=== PATIENT | male | born 1995 | race Caucasian/White ===

== ENCOUNTER → 2017-01-16 | Day surgery (SDC) | payer OTHER ==
--- NOTE | ~2017-01-16 | HP ---
ADMIT: 01/16/2017 RM/LOC: [facility] MR#: [id number] [address] [facility] [address] [place], [place] [address] KELSEA CHIN [address] [place] [address] Pre-OP History and Physical SEX: M AGE: 21 : 1995 DATE OF SERVICE: HISTORY OF PRESENT ILLNESS: This patient is a 21-year-old male, who was eating steak, said he took a bite, did not chew well enough, got stuck in his esophagus. Unable to get it up or out, unable to puke it out. He has tried drinking some water, would not go down. He is sitting there, spitting his saliva into a bag. He was transferred over from [place], where he was seen initially. Says he has never had this before. He has not been having any problems with significant GERD or reflux, takes some medications. PAST MEDICAL HISTORY: Significant for obesity. He has had knee meniscus and a toe surgery. He denies otherwise any other medical problems or issues. He denies any routine medications. He does chew some tobacco minimally. Denies any significant EtOH. FAMILY HISTORY: Noncontributory. PHYSICAL EXAMINATION: GENERAL: He is alert. He is oriented. He is in no significant distress. HEENT: His sclerae are nonicteric. Extraocular muscles are intact. CHEST: Clear. HEART: Regular rate and rhythm. ABDOMEN: Obese, no pain to palpation. No masses. EXTREMITIES: Without clubbing or cyanosis. ASSESSMENT AND PLAN: EGD and food bolus removal. Jake Yang MD/ birdie JOB #: [id number] CC: Jake Yang, Attending Physician Otilia Cabrera, Family Physician
--- NOTE | 2017-01-17 19:09 | ER ---
ADMIT: 01/16/2017 RM/LOC: [facility] MR#: [id number] [address] [place], [place] [address] KELSEA CHIN [address] [place] [address] Emergency Room Report SEX: M AGE: 21 : 1995 DATE: 01/16/2017 BRIEF ADDENDUM: Please see my T-sheet for complete review of systems, past medical history, and physical exam. CHIEF COMPLAINT: Food bolus. HISTORY OF PRESENT ILLNESS: This is a pleasant 21-year-old white male, who presents to the [place] ED after being seen at the [facility]. States he was eating steak about 2 hours prior to arrival when it was lodged in his esophagus. He is having difficulty tolerating his secretions at this time and continually spits in a bag. Denies any pain, just a discomfort in his chest. He was seen at the [facility], who spoke with Dr. Yang, who had him transferred to [facility] for urgent endoscopy. Denies any fevers, chills, sore throat, cough, ear ache. Otherwise, well. PAST MEDICAL HISTORY: No past medical history. MEDICATIONS: Takes no medications. ALLERGIES: HAS NO ALLERGIES. SOCIAL HISTORY: He does use chewing tobacco and drinks occasionally. COURSE IN THE EMERGENCY ROOM: GENERAL: Patient was seen and examined. He is afebrile. No acute distress. He is alert. HEAD AND NECK: Normal inspection. Trachea is midline. No lymphadenopathy. Eyes, equal and reactive. Pharynx is nonerythematous. No airway problems. He does have increased secretion of saliva. CHEST: No tenderness to palpation of chest, just a vague feeling of pressure and discomfort. Breath sounds are normal bilaterally. No wheezes, rhonchi, ADMIT: 01/16/2017 RM/LOC: [facility] MR#: [id number] [address] [address] KELSEA CHIN [address] [place] [address] Emergency Room Report SEX: M AGE: 21 : 1995 or rales. HEART: Regular. No murmur. ABDOMEN: Nontender. SKIN: No rash. IMPRESSION: 1. Foreign body food bolus in the esophagus. 2. Obesity. DISPOSITION: Did see Dr. Yang in the department tonight, who is taking him back to the surgical suite for urgent endoscopy to remove the food bolus. He will be recovered in the ED and discharged home to follow up with his primary care provider as needed. JT Reardon / Ricardo Zuñiga MD / birdie JOB #: [id number] CC: Jake Yang MD, Attending Physician Otilia Cabrera MD, Family Physician
--- NOTE | 2017-02-07 15:54 | OR ---
ADMIT: 01/16/2017 RM/LOC: [facility] MR#: [id number] [address] [place], [place] [address] KELSEA CHIN [address] [place] [address] Operative/Delivery Room Report SEX: M AGE: 21 : 1995 SURGERY DATE: 01/16/2017 SURGEON: Jake Yang MD PREOPERATIVE DIAGNOSIS: Food bolus in the esophagus. POSTOPERATIVE DIAGNOSIS: Meat in the distal esophagus as you can see in picture 1. PROCEDURE: EGD and removal of food bolus. ANESTHESIA: MAC anesthesia. ESTIMATED BLOOD LOSS: None. INDICATION FOR PROCEDURE: Please see H and P. DESCRIPTION OF PROCEDURE: After the risks, benefits, possible complications, and the alternatives had been explained, and informed consent had been obtained, the patient was taken back to the procedure room, underwent sedation. Flexible EGD scope was introduced, and you see the meat down in the distal esophagus. He is unable to pass, maneuvered slowly to the side of it and was able to get it going down into the stomach and pushed in without any significant force or issues. Maneuvered the scope down through the stomach and the second portion of the duodenum, which appeared okay. Duodenum and duodenal bulb appeared okay. You can see some food debris still in the stomach in picture #4. Came back up, there was like I said some mild irritation there where the food was stuck, but the rest of the esophagus was clear as I inspected it on the way out, and the procedure was terminated. Tolerated it well, was taken to recovery room in stable and satisfactory condition. Jake Yang MD/ birdie JOB #: [id number] CC: Jake Yang, Attending Physician Otilia Cabrera, Family Physician
== END | disposition home or self-care (01) ==
LOC: ER 21:14 → SSS 22:10
PROC: 0DC68ZZ Extirpation of Matter from Stomach, Via Natural or Artificial Opening Endoscopic (ICD-10-PCS; principal; 2017-01-16)
DX: T18.128A Food in esophagus causing other injury, initial encounter (principal); E66.9 Obesity, unspecified; Z79.899 Other long term (current) drug therapy; X58.XXXA Exposure to other specified factors, initial encounter; Y93.89 Activity, other specified

== ENCOUNTER 2017-01-25 09:18 | Day surgery (SDC) | payer OTHER ==
[~2017-01-25] VITALS: Ht 195.6 cm; Wt 154.5 kg
--- NOTE | ~2017-01-25 | OR ---
ADMIT: 01/25/2017 RM/LOC: [facility] MR#: [id number] [facility]#: [id number] [address] [address] KELSEA CHIN [address] [place] [address] Operative/Delivery Room Report SEX: M AGE: 21 : 1995 SURGERY DATE: 01/25/2017 SURGEON: Angel Salinas MD PREOPERATIVE DIAGNOSIS: Esophageal food bolus. POSTOPERATIVE DIAGNOSIS: Esophageal food bolus. PROCEDURE PERFORMED: EGD with removal of esophageal food bolus as well as biopsies of the distal esophagus. ANESTHESIA: Sedation. ESTIMATED BLOOD LOSS: None. DESCRIPTION OF PROCEDURE: After appropriate informed consent was obtained, the patient was brought to the endoscopy suite. IV sedation was provided. A well-lubricated endoscope was introduced and passed down the esophagus. The proximal and mid esophagus appeared normal. Distal esophagus though did show clearly a piece of meat stuck in the distal esophagus. I was able to remove a portion of this with a Corbin net, but not the entirety of it. The scope was then reintroduced, passed back down into the esophagus and was able to push the remaining meat through the GE junction into the stomach. The esophagus appeared normal. There was no evidence of stricture or narrowing. No hiatal hernia. The gastric mucosa appeared normal throughout. The pylorus was intubated. Duodenal bulb, second and third portions of the duodenum appeared normal. The scope was retroflexed revealing no hiatal hernia from below. No proximal gastritis or mass. Several biopsies were then taken of the distal esophagus to rule out eosinophilic esophagitis. With the biopsies taken, the stomach was then deflated and scope was withdrawn without apparent complications. The patient tolerated the procedure well and was taken to the recovery room in stable condition. Angel Salinas MD/ birdie JOB #: [id number] CC: Angel Salinas, Attending Physician Angel Salinas, Family Physician Deandre Edouard MD
--- NOTE | ~2017-01-25 | HP ---
ADMIT: 01/25/2017 RM/LOC: [facility] MR#: [id number] [id number] [place], [place] [address] [facility] [address] [place] [address] History and Physical SEX: M AGE: 21 : 1995 DATE OF SERVICE: 01/25/2017 ADDENDUM: This is an addendum to an H and P by JT Buckner. This patient has an esophageal food bolus. He was just in the hospital about a week or a week and a half ago with a similar problem. Dr. Yang had removed food bolus. He was eating a piece of roast beef, and it got stuck. He cannot even tolerate his own secretions, so we elected to proceed back to the OR for upper endoscopy and removal of this food bolus. He understands the risks and benefits of this procedure, and I have also talked to the patient's mother about this. Angel Salinas MD/ birdie JOB #: [id number] CC: Angel Salinas, Attending Physician Angel Salinas, Family Physician
--- NOTE | 2017-01-31 10:36 | HP ---
ADMIT: 01/25/2017 RM/LOC: [facility] MR#: [id number] [address] [place], [place] [address] KELSEA CHIN [address] [place] [address] History and Physical SEX: M AGE: 21 : 1995 DATE OF SERVICE: 01/25/2017 CHIEF COMPLAINT: Food stuck in throat. HISTORY OF PRESENT ILLNESS: Kelsea is a very pleasant 21-year-old male, who was eating either steak or pork last night for supper and noticed a piece get stuck in his throat. He tried to wash it down with water, but was unsuccessful and has been spitting the water back up. He actually had this issue not too long ago, approximately one week ago where he underwent EGD with foreign body removal by Dr. Yang. At that time, he is able to pass the food bolus through. He currently denies any pain, but just states the discomfort. He further denies any nausea, diarrhea, constipation, dark or bloody stools. PAST MEDICAL HISTORY: No significant history. PAST SURGICAL HISTORY: 1. Previous EGD approximately 1 week ago, please see HPI. 2. Bilateral knee scopes. 3. Left foot surgery. ALLERGIES: NO KNOWN DRUG ALLERGIES. MEDICATIONS: No home medications. FAMILY HISTORY: Noncontributory. SOCIAL HISTORY: The patient chews tobacco and it can last him about 2 to 3 days. He has an occasional beer every now and then too. Denies any illicit drug use. REVIEW OF SYSTEMS: CONSTITUTIONAL: The patient denies any fever, chills, or night sweats. The rest of comprehensive 10-point review of systems was performed and all other systems are negative. PHYSICAL EXAMINATION: GENERAL: The patient is in no acute distress. He is alert oriented. HEENT: Head is normocephalic and atraumatic. EOMs are intact. Conjunctivae free of icterus, erythema, or pallor. Pinnae, free of deformities. Nose, midline. No tracheal deviation. NECK: Supple. SKIN: Negative for jaundice, clubbing, edema, pallor, or cyanosis. LUNGS: Normal respiratory effort. ADMIT: 01/25/2017 RM/LOC: [facility] MR#: [id number] [address] [place], [place] [address] [facility] [address] [place] [address] History and Physical SEX: M AGE: 21 : 1995 HEART: Distal pulses intact. Regular rate and rhythm. ABDOMEN: Soft, nondistended, and nontender. NEURO: Grossly intact. ASSESSMENT: Food bolus. PLAN: The plan is to have the patient transferred to short-stay surgery and undergo EGD with foreign body removal performed by Dr. Salinas today. I discussed the risks, alternatives, benefits, and complications of EGD with the patient to which he is in agreement of this plan, and had all his questions answered and would like to proceed. I will make sure he has consented for the procedure and will be rolling him back shortly. JT Buckner / Angel Salinas MD / birdie JOB #: [id number] CC: Angel Salinas, Attending Physician Angel Salinas, Family Physician
--- NOTE | 2017-02-04 01:09 | ER ---
ADMIT: 01/25/2017 RM/LOC: [facility] MR#: [id number] [address] [place], [place] [address] KELSEA CHIN [address] [place] [address] Emergency Room Report SEX: M AGE: 21 : 1995 DATE: 01/25/2017 ADDENDUM: CHIEF COMPLAINT: Pork stuck in throat. HISTORY OF PRESENT ILLNESS: This is a 21-year-old, who had esophageal food bolus on the 16 of January, had EGD done by Dr. Yang at that time. He said he has been able the eat okay since then without difficulty, but then he ate pork last night at 11 p.m. and said he has been trying to swallow it throughout the night. Any time he tries to drink water, it comes up. Dr. Salinas was contacted, his PA came down to the ER to see the patient, will go to surgery. CLINICAL IMPRESSION: Esophageal food bolus. JT Hernandez / Brian Hansen MD / birdie JOB #: [id number] CC: Angel Salinas MD, Attending Physician Angel Salinas MD, Family Physician
== END 2017-01-25 12:54 | disposition home or self-care (01) ==
LOC: ER 09:18 → SSS 09:53
PROC: 0DB58ZX Excision of Esophagus, Via Natural or Artificial Opening Endoscopic, Diagnostic (ICD-10-PCS; principal; 2017-01-25)
PROC: 0DC58ZZ Extirpation of Matter from Esophagus, Via Natural or Artificial Opening Endoscopic (ICD-10-PCS; principal; 2017-01-25)
DX: T18.128A Food in esophagus causing other injury, initial encounter (principal); K22.10 Ulcer of esophagus without bleeding; Z98.890 Other specified postprocedural states; X58.XXXA Exposure to other specified factors, initial encounter